=== PATIENT | female | born 1985 | race Caucasian/White ===

== ENCOUNTER 2019-08-05 22:38 | Inpatient (IN) ==
[2019-08-05 21:20] LABS: Amphetamine Screen,Urine Negative ng/mL (Cutoff=1000); Barbiturate Screen,Urine Negative ng/mL (Cutoff=200); Benzodiazepines Screen,Urine Negative ng/mL (Cutoff=200); Cannabinoid Screen,Urine Negative ng/mL (Cutoff = 50); Cocaine Screen,Urine Negative ng/mL (Cutoff= 300); Opiate Screen,Urine Negative ng/mL (Cutoff=300); Phencyclidine Screen,Urine Negative ng/mL (Cutoff=25)
[2019-08-05 22:11] LABS: Basophils % 0.2 %; Eosinophils # 0.1 K/mcL (0.0-0.6); Eosinophils % 0.7 %; Hematocrit 36.7 % (35.3-44.9); Hemoglobin 11.8 g/dL (11.5-15.4); Immature Granulocytes % 0.5 % (0-4); Lymphocytes # 2.2 K/mcL (0.6-4.6); Lymphocytes % 16.4 %; Mean Corpuscular HGB Conc 32.2 g/dL (31.6-35.5); Mean Corpuscular Hemoglobin 26.6 pg (28.0-33.3); Mean Corpuscular Volume 82.7 fL (83.0-100.0); Mean Platelet Volume 8.9 fL (9.4-12.4); Monocytes # 0.9 K/mcL (0.0-1.3); Monocytes % 6.8 %; Platelet Count 349 K/mcL (140-400); Red Blood Count 4.44 M/mcL (3.82-4.97); Red Cell Distribution Width 16.3 % (11.5-14.5); Segmented Neutrophils % 75.4 %; White Blood Count 13.2 K/mcL (4.3-11.1)
[2019-08-05 22:20] LABS: Protein/Creatinine Ratio,Urine 0.39 mg/mg (0.00-0.20)
[2019-08-05 22:32] LABS: Alanine Aminotransferase 11 Units/L (7-52); Aspartate Amino Transferase 19 Units/L (13-39); BUN/Creatinine Ratio 12 (6-26); Blood Urea Nitrogen 7 mg/dL (6-20); Lactate Dehydrogenase 204 Units/L (140-271); Uric Acid 2.8 mg/dL (2.3-7.6); eGFR For African Americans > 60 (> 60); eGFR For Non-African Americans > 60 (> 60)
[~2019-08-05 22:38] MED LIST: *HR* Nalbuphine 10 MG/ML AMPUL IVP PRN; Famotidine 20 MG/2 ML VIAL IVP PRN; Lidocaine 1% 20 ML MDV INFILT PRN; Metoclopramide 10 MG/2 ML VIAL IVP PRN; Naloxone 0.4 MG/ML INJ IVP PRN; Ondansetron 4 MG/2 ML VIAL IVP PRN; miSOPROStol 25 MCG TABLET PO PRN
[2019-08-05] MEDS ORDERED: Ringers Solution, Lactated 1,000 ML IVC SCH (22:45)
[2019-08-05] MEDS ORDERED: Oxytocin 20 units/ LR 1000 mL 20 UNIT/1,000 ML BAG IVC SCH (22:45)
[2019-08-05] MEDS ORDERED: Bupivacaine-MPF 0.25% 10 ML VIAL EP ONE (23:15)
[2019-08-05] MEDS ORDERED: Epidural Premix (fent/bupiv) 110 ML EP SCH (23:15)
[2019-08-05] MEDS ORDERED: *HR* FentaNYL (PF) 100 MCG/2 ML VIAL EP ONE (23:15)
[2019-08-06] MEDS ORDERED: Bupivacaine-MPF 0.25% 10 ML VIAL ONE (01:11)
[2019-08-06] MEDS ORDERED: *HR* FentaNYL (PF) 100 MCG/2 ML VIAL ONE (01:11)
[2019-08-06] MEDS ORDERED: Benzocaine/Menthol 56 GM AEROSOL SPRAY TP PRN (07:58)
[2019-08-06] MEDS ORDERED: Oxytocin 20 units/ LR 1000 mL 20 UNIT/1,000 ML BAG IVC SCH (07:58)
[2019-08-06] MEDS ORDERED: Acetaminophen 325 MG TABLET PO PRN (07:58)
[2019-08-06] MEDS: Ibuprofen 600 MG TABLET PO PRN (10:35)
[2019-08-06] MEDS: Prenatal Vit/FA 1 EACH TABLET PO SCH (10:35)
[2019-08-07] MEDS: Ibuprofen 600 MG TABLET PO PRN (00:27)
[2019-08-07] MEDS: Prenatal Vit/FA 1 EACH TABLET PO SCH (07:50)
[2019-08-07 08:26] VITALS: BP 126/87
== END 2019-08-07 18:15 | disposition home or self-care (01) | DRG 560 ==
LOC: 1NENULAB → 1NENUOBS 08-06 08:59
PROVIDERS: ADMIT Registered Nurse; ATTEND Registered Nurse